=== PATIENT | male | born 2000 | race Caucasian/White ===

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

== ENCOUNTER 2018-01-10 21:46 | Inpatient (IN) | payer OTHER ==
[2018-01-10] MEDS ORDERED: LORazepam TAB(*) 1 MG PO ONE (21:56)
--- NOTE | 2018-01-10 22:12 | ED ---
Substance Abuse/Use - HPI Summary HPI Summary: This patient is a 17 year old M brought in by the police with a chief complaint of drug abuse since 5 days ago. The patient states that he would like to calm down and feels anxious. The police state that he has taken an unknown amount of drugs and has exhibited many manic behaviors. He has committed possible crimes within the last week. He witnessed his friend attempt suicide on Monday, and later that day he was given a DUI for heavy alcohol abuse. The police say that they entered the apartment with a warrant and it smelled heavily of marijuana. They took his bong on site. The police could not get his vitals because of the restraints they had to place on him. One of his friends had concentrated oils on their person. The patient states, the police told me they wouldnt take me to the hospital and here I am. Pt claims he has not had alcohol since five days ago and has only smoked marijuana since in order to treat his subjective anxiety and depression. PMHX undiagnosed anxiety and depression. SHX tobacco use , [employer] student. RX none. - History Of Current Complaint Stated Complaint: 941 Hx Obtained From: Patient, Other: - police Ingestion History: Type/Name Of Drug - marijuana Aggravating Factor(s): Recent Stress - suicide attempt of friend Related Hx: Recent Stressors - Allergies/Home Medications Allergies/Adverse Reactions: Allergies Allergy/AdvReac Type Severity Reaction Status Date / Time apple Allergy Difficulty Verified 01/05/18 06:14 Swallowing celery Allergy Difficulty Verified 01/05/18 06:14 Swallowing strawberry Allergy Anaphylatic Verified 01/11/18 11:46 Shock eggplant Allergy Anaphylatic Uncoded 01/11/18 11:46 Shock nonorganic foods Allergy Anaphylatic Uncoded 01/11/18 11:46 Shock PMH/Surg Hx/FS Hx/Imm Hx Endocrine/Hematology History: Denies: Hx Diabetes Cardiovascular History: Denies: Hx Hypercholesterolemia, Hx Hypertension Sensory History: Denies: Hx Deafness Psychiatric History: Denies: Hx Eating Disorder - Cancer History Cancer Type, Location and Year: None reported - Surgical History Surgery Procedure, Year, and Place: None reported - Immunization History Date of Tetanus Vaccine: Up-to-date - Family History Known Family History: Positive: Unknown - not given - Social History Occupation: Student Alcohol Use: Weekly Hx Substance Use: No Substance Use Type: Reports: Marijuana Hx Tobacco Use: No Smoking Status (MU): Never Smoked Tobacco Review of Systems Negative: Slurred Speech Positive: Anxious All Other Systems Reviewed And Are Negative: Yes Physical Exam - Summary Physical Exam Summary: Appearance: Well-appearing, Well-nourished, lying in bed comfortably Skin: Warm, dry, no obvious rash Eyes: sclera anicteric, no conjunctival pallor ENT: mucous membranes moist, pharynx appears normal Neck: Supple, nontender Respiratory: Clear to auscultation, no signs of respiratory distress Cardiovascular: Normal S1, S2. No murmurs. Normal distal pulses in tibial and radial bilaterally. Abdomen: Soft, nontender, normal active bowel sounds present Musculoskeletal: Normal, Strength/ROM Intact Neurological: A&Ox3, awake and alert, mentation is normal, speech is fluent and appropriate Psychiatric: affect is normal, does not appear anxious or depressed Triage Information Reviewed: Yes Vital Signs Reviewed: Yes Course/Dx - Course Course Of Treatment: This patient is a 17 year old M brought in by the police with a chief complaint of drug abuse since 5 days ago. The police state that he has taken an unknown amount of drugs and has exhibited many manic behaviors. He has committed possible crimes within the last week. He witnessed his friend attempt suicide on Monday, and later that day he was given a DUI for heavy alcohol abuse. The police say that they entered the apartment with a warrant and it smelled heavily of marijuana. They took his bong on site. The police could not get his vitals because of the restraints they had to place on him. One of his friends had concentrated oils on their person. In the ED course the patient was given Lorazapam and Nicotine. The patient will be signed out to Dr. Laguna, awaiting MHE - Diagnoses Provider Diagnoses: Substance induced mood disorder Discharge - Sign-Out/Discharge Documenting (check all that apply): Sign-Out Patient Signing out patient TO: Kasey Laguna Receiving patient FROM: Santos Wilde - Discharge Plan Condition: Fair Disposition: ADMITTED TO [facility] - Billing Disposition and Condition Condition: FAIR Disposition: Admitted to [facility] - Attestation Statements Document Initiated by Scribe: Yes Documenting Scribe: Teo Ortega Provider For Whom Scribe is Documenting (Include Credential): Santos Wilde MD Scribe Attestation: Teo Tran, scribed for Santos Wilde MD on 01/17/18 at 1000. Scribe Documentation Reviewed: Yes Provider Attestation: The documentation as recorded by the scribe, Teo Ortega accurately reflects the service I personally performed and the decisions made by me, Santos Wilde MD Status of Scribe Document: Viewed
[2018-01-10] MEDS: Nicotine Inhaler* 10 MG AMP INH PRN (22:50)
[2018-01-10] MEDS ORDERED: Mouth Piece, Nicotine* 1 EACH CARTRIDGE INH ONE (23:00)
[2018-01-11] MEDS: Nicotine Inhaler* 10 MG AMP INH PRN ×3 (00:41→12:25)
[2018-01-11] MEDS ORDERED: LORazepam TAB(*) 1 MG PO ONE ×2 (02:20→11:33)
--- NOTE | 2018-01-11 07:29 | ED ---
Progress - Progress Note Progress Note: This patient was received from Dr. Wilde on shift change awaiting MHE. The patient was evaluated by Dr. Tim and will be an involuntary admission for substance induced mood disorder. Course/Dx - Course Course Of Treatment: This patient was received from Dr. Wilde on shift change awaiting MHE. The patient was evaluated by Dr. Tim and will be an involuntary admission for substance induced mood disorder. - Diagnoses Provider Diagnoses: Substance induced mood disorder Discharge - Sign-Out/Discharge Documenting (check all that apply): Patient Departure - admitted , Receiving Sign-Out Receiving patient FROM: Santos Wilde - Discharge Plan Condition: Fair Disposition: ADMITTED TO [facility] - Billing Disposition and Condition Condition: FAIR Disposition: Admitted to [facility] - Attestation Statements Document Initiated by Dion: Yes Documenting Scribe: James Busch Provider For Whom Dion is Documenting (Include Credential): Kasey Laguna MD Scribe Attestation: James Tran scribed for Kasey Laguna MD on 01/11/18 at 1736. Scribe Documentation Reviewed: Yes Provider Attestation: The documentation as recorded by the James garza accurately reflects the service I personally performed and the decisions made by Kasey banegas MD Status of Scribe Document: Viewed
[2018-01-11] MEDS ORDERED: Acetaminophen TAB* 325 MG PO PRN (09:07)
[2018-01-11] MEDS ORDERED: Al Hydrox/Mg Hydrox/Simet LIQ* 30 ML UDC PO PRN (09:07)
[2018-01-11] MEDS ORDERED: Mouth Piece, Nicotine* 1 EACH CARTRIDGE ONE (12:23)
[2018-01-11] MEDS ORDERED: Nicotine PATCH 21 MG/24 HR* PATCH ONE (12:36)
[2018-01-11] MEDS: Nicotine PATCH 14 MG/24 HR* PATCH TRANSDERM SCH (16:21)
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
[2018-01-11] MEDS: Nicotine Patch Removal NOTE FOLLOW UP SCH (23:52)
[2018-01-12] MEDS ORDERED: Nicotine Inhaler* 10 MG AMP ONE (07:33)
[2018-01-12] MEDS: Nicotine GUM* 2 MG PO PRN (07:40)
[2018-01-12] MEDS: Nicotine PATCH 14 MG/24 HR* PATCH TRANSDERM SCH (07:40)
[2018-01-12] MEDS: LORazepam TAB(*) 1 MG PO SCH ×2 (10:24→23:57)
[2018-01-12] MEDS ORDERED: Mouth Piece, Nicotine* 1 EACH CARTRIDGE ONE (12:32)
[2018-01-12] MEDS: Nicotine Inhaler* 10 MG AMP INH PRN (12:33)
[2018-01-12] MEDS ORDERED: diPHENhydraMINE PO* 50 MG ONE (13:31)
[2018-01-12] MEDS ORDERED: Haloperidol TAB* 5 MG ONE (13:32)
[2018-01-12] MEDS ORDERED: LORazepam INJ* 2 MG/ML 1 ML VIAL ONE (13:38)
[2018-01-12] MEDS ORDERED: Haloperidol INJ IV/IM* 5 MG/ML AMP ONE (13:38)
[2018-01-12] MEDS ORDERED: diPHENhydraMINE PO* 50 MG PO ONE (14:15)
[2018-01-12] MEDS ORDERED: Haloperidol INJ IV/IM* 5 MG/ML AMP IM ONE (14:15)
[2018-01-12] MEDS ORDERED: Haloperidol TAB* 5 MG PO ONE (14:16)
[2018-01-12] MEDS ORDERED: LORazepam INJ* 2 MG/ML 1 ML VIAL IM ONE (14:16)
[2018-01-12] MEDS ORDERED: LORazepam TAB(*) 1 MG PO ONE (14:16)
--- NOTE | 2018-01-12 14:31 | PN ---
Subjective - Subjective Service Type: [id number] Hosp care 35 min high complexity Subjective: This morning, patient was present for unit routines and groups. He was noted to ask many questions of staff and expressed desire to learn while here. During visiting hours, patient was meeting with his mother, adjusto writer operator asked to join. Patient was initially topical regarding need for therapy in regards to recent traumatic experience of seeing his friend attempt suicide. He reports periods of depression and anxiety lasting a few minutes at a time, that are typically alleviated by marijuana. Merchandise Adjustment Clerk encouraged patient to be forthcoming about substance use history. He denies using cannabis or alprazolam since last week and continues to minimize substance use, despite factual information obtained from lab tests and collateral information. Patient was then circumstantial about cannabis. His mother attempted to speak but was often interrupted by him in a derogatory manner. She expressed that she is concerned to bring him home. Patient abruptly ran at full speed across unit and slammed his body into the metal doors. Patient was paranoid and disorganized. He postured, yelled and threatened staff. He was demanding to be discharged. With de-escalation from multiple staff and security, patient accepted stat oral medications for psychotic agitation. Objective - Appearance Appearance: Well Developed/Nourished Dysmorphic Features: Yes Hygiene: Normal Grooming: Fairly Well Kept - Behavior Psychomotor Activities: Normal Exhibits Abnormal Movement: No - Attitude and Relatedness Attitude and Relatedness: Psychotically Related Eye Contact: Poor - Speech Quality: Unpressured Latencies: Normal Quantity: Copious - Affect Observed Affect: Expansive Affect Consistent with: Euphoria - Thought Process Patient's Thought Process: Disorganized Thought Content: Yes Paranoid Ideation, No Passive Wish, No Suicidal Planning, No Homicidal Ideation - Sensorium Experiencing Hallucinations: No, Sensorium is Clear Type of Hallucinations: Visual: No, Auditory: No, Command: No - Level of Consciousness Level of Consciousness: Alert Orientation: Yes Intact, Yes Orientated to Time, Yes Orientated to Place, Yes Orientated to Person - Impulse Control Impulse Control: Impaired - Insight and Judgement Insight and Judgement: Impaired - Group Participation Particating in Group Activities: Yes - Medication Management Medication Management Adherence: Yes Assessment - Assessment Merits Inpatient Hospitalization: For Immediate Safety, For Stabilization Inpatient DSM-V Dx: F23 Clinical Impression: 17yo male who presented to ED with disorganized behavior and suicidal ideation. He is minimizing substance use and legal repercussions. Patient continues to present with episodic psychosis. He merits hospitalization for immediate safety and stabilization. MHU: Problem List - Patient Problems (1) Psychosis Current Visit: Yes Status: Acute Priority: High Comment: prn medications substance withdrawal monitoring Plan - Plan Treatment Plan: Name: JULIENNE RIZO Birthdate: 2000 [id number] continue acute intensive psychiatric treatment. monitor for benzodiazepine and alcohol withdrawal via [facility] protocol. utilize prn olanzapine and diphenhydramine for agitation. Continued Medication Management: Start Medication Medications: Current Medications Acetaminophen (Tylenol Tab*) 650 mg PO Q4H PRN PRN Reason: for pain; or Temp >101 F Al Hydrox/Mg Hydrox/Simethicone (Maalox Plus*) 30 ml PO Q4H PRN PRN Reason: INDIGESTION Hydroxyzine HCl (Atarax Tab*) 50 mg PO Q6H PRN PRN Reason: ANXIETY Lorazepam (Ativan Tab(*)) 0 - 6 mg PO .PER [facility] PROTOCOL [facility]; Protocol Last Admin: 01/12/18 10:24 Dose: 2 mg Nicotine (Nicotine Patch 14 Mg/24 Hr*) 1 patch TRANSDERM DAILY [facility] Last Admin: 01/12/18 07:40 Dose: 1 patch Nicotine (Nicotine Inhaler*) 10 mg INH Q2H PRN PRN Reason: CRAVING Last Admin: 01/12/18 12:33 Dose: 10 mg Nicotine Polacrilex (Nicotine Gum*) 2 mg PO Q2H PRN PRN Reason: CRAVING Last Admin: 01/12/18 07:40 Dose: 2 mg Pharmacy Profile Note (Nicotine Patch Removal Note*) 1 note FOLLOW UP 2100 [facility] Last Admin: 01/11/18 23:52 Dose: 1 note diphenhydramine 50mg po q4h prn agitation olanzapine ODT 5mg q4h prn agitation - Discharge Plan Discharge Plan: Inpatient Hospitalization
[2018-01-12] MEDS: Nicotine Patch Removal NOTE FOLLOW UP SCH (21:17)
[2018-01-12] MEDS: hydrOXYzine HCL TAB* 50 MG PO PRN (23:57)
[2018-01-13] MEDS: Nicotine PATCH 14 MG/24 HR* PATCH TRANSDERM SCH (09:16)
[2018-01-13] MEDS: Nicotine Inhaler* 10 MG AMP INH PRN ×4 (09:17→19:56)
[2018-01-13] MEDS: Nicotine GUM* 2 MG PO PRN ×4 (09:19→19:56)
[2018-01-13] MEDS: hydrOXYzine HCL TAB* 50 MG PO PRN (09:21)
[2018-01-13] MEDS: LORazepam TAB(*) 1 MG PO SCH (11:49)
[2018-01-13] MEDS: Nicotine Patch Removal NOTE FOLLOW UP SCH (19:57)
[2018-01-14] MEDS: Nicotine GUM* 2 MG PO PRN ×3 (07:42→16:05)
[2018-01-14] MEDS: Nicotine Inhaler* 10 MG AMP INH PRN ×4 (07:42→20:10)
[2018-01-14] MEDS: Nicotine PATCH 14 MG/24 HR* PATCH TRANSDERM SCH (07:42)
[2018-01-14] MEDS: hydrOXYzine HCL TAB* 50 MG PO PRN (19:32)
--- NOTE | 2018-01-14 20:11 | PN ---
Subjective - Subjective Date of Service: 01/14/18 Service Type: [id number] Hosp care 15 min low complexity Subjective: Willie continues to be angry at his mother for reporting wrong information. His thoughts are still disorganized with very poor understanding of his psychiatric problems as well as substance use. He thinks there is nothing wrong abusing drugs in moderation. Objective - Appearance Appearance: Healthy Appearing Dysmorphic Features: No Hygiene: Normal Grooming: Fairly Well Kept - Behavior Psychomotor Activities: Abnormal-Increased Exhibits Abnormal Movement: No - Attitude and Relatedness Attitude and Relatedness: Guarded Eye Contact: Fair - Speech Quality: Pressured Latencies: Short Quantity: Terse - Mood Patient's Decription of Mood: "Angry" - Affect Observed Affect: Tense Affect Consistent with: Dysphoria - Thought Process Patient's Thought Process: Coherent, Disorganized, Tangential Thought Content: No Passive Wish, No Suicidal Planning, No Homicidal Ideation, No Paranoid Ideation - Sensorium Experiencing Hallucinations: No, Sensorium is Clear Type of Hallucinations: Visual: No, Auditory: No, Command: No - Level of Consciousness Level of Consciousness: Alert Orientation: Yes Intact, Yes Orientated to Time, Yes Orientated to Place, Yes Orientated to Person - Impulse Control Impulse Control: Impaired - Insight and Judgement Insight and Judgement: Impaired - Group Participation Particating in Group Activities: No - Medication Management Medication Management Adherence: No Assessment - Assessment Merits Inpatient Hospitalization: For Immediate Safety, For Stabilization, Pending Safe DC Plan Inpatient DSM-V Dx: F23 Clinical Impression: 17yo male who presented to ED with disorganized behavior and suicidal ideation. He is minimizing substance use and legal repercussions. Patient continues to present with episodic psychosis. He merits hospitalization for immediate safety and stabilization. Plan - Plan Treatment Plan: Name: WILLIE RIZO Birthdate: 2000 [id number] continue acute intensive psychiatric treatment. monitor for benzodiazepine and alcohol withdrawal via [facility] protocol. utilize prn olanzapine and diphenhydramine for agitation. Continued Medication Management: Continue Outpt Medication Medications: Current Medications Acetaminophen (Tylenol Tab*) 650 mg PO Q4H PRN PRN Reason: for pain; or Temp >101 F Al Hydrox/Mg Hydrox/Simethicone (Maalox Plus*) 30 ml PO Q4H PRN PRN Reason: INDIGESTION Hydroxyzine HCl (Atarax Tab*) 50 mg PO Q6H PRN PRN Reason: ANXIETY Last Admin: 01/14/18 19:32 Dose: 50 mg Lorazepam (Ativan Tab(*)) 0 - 6 mg PO .PER [facility] PROTOCOL [facility]; Protocol Last Admin: 01/13/18 11:49 Dose: 3 mg Nicotine (Nicotine Patch 14 Mg/24 Hr*) 1 patch TRANSDERM DAILY [facility] Last Admin: 01/14/18 07:42 Dose: 1 patch Nicotine (Nicotine Inhaler*) 10 mg INH Q2H PRN PRN Reason: CRAVING Last Admin: 01/14/18 16:05 Dose: 10 mg Nicotine Polacrilex (Nicotine Gum*) 2 mg PO Q2H PRN PRN Reason: CRAVING Last Admin: 01/14/18 16:05 Dose: 2 mg Pharmacy Profile Note (Nicotine Patch Removal Note*) 1 note FOLLOW UP 2100 [facility] Last Admin: 01/13/18 19:57 Dose: Not Given - Discharge Plan Discharge Plan: Drug/Alcohol Rehab
[2018-01-14] MEDS: Nicotine Patch Removal NOTE FOLLOW UP SCH (20:50)
[2018-01-15] MEDS ORDERED: Mouth Piece, Nicotine* 1 EACH CARTRIDGE ONE (08:06)
[2018-01-15] MEDS: Nicotine PATCH 14 MG/24 HR* PATCH TRANSDERM SCH (08:26)
[2018-01-15] MEDS: Nicotine Inhaler* 10 MG AMP INH PRN ×4 (08:27→17:38)
[2018-01-15] MEDS: Nicotine GUM* 2 MG PO PRN ×4 (08:28→17:40)
--- NOTE | 2018-01-15 15:53 | PN ---
Subjective - Subjective Date of Service: 01/15/18 Service Type: [id number] Hosp care 15 min low complexity Subjective: Patient reports being here over the weekend was "hard to adjust." He states he would benefit from fresh air. He states he is trying to call his zinc chloride operator and IC officials. He reports his mood is "overall pretty good." He denies depressed mood or anxiety. He states he does not want to be prescribed medications. He reports "Ok" sleep. Patient inquires about length of stay, citing he has plane tickets to [place] to see his grandfather on his bed. Patient continues to minimize substance use and denies need for treatment for such. Assessment - Assessment Merits Inpatient Hospitalization: For Immediate Safety, For Stabilization, For Ongoing Evaluation Inpatient DSM-V Dx: F23 Clinical Impression: 17yo male who presented to ED with disorganized behavior and suicidal ideation. He is minimizing substance use and legal repercussions. He merits hospitalization for immediate safety and stabilization. MHU: Problem List - Patient Problems (1) Psychosis Current Visit: Yes Status: Acute Priority: High Comment: prn medications substance withdrawal monitoring Plan - Plan Treatment Plan: Name: JULIENNE RIZO Birthdate: 2000 [id number] continue acute intensive psychiatric treatment. utilize prn olanzapine and diphenhydramine for agitation. Continued Medication Management: Consider Medication Medications: Current Medications Acetaminophen (Tylenol Tab*) 650 mg PO Q4H PRN PRN Reason: for pain; or Temp >101 F Al Hydrox/Mg Hydrox/Simethicone (Maalox Plus*) 30 ml PO Q4H PRN PRN Reason: INDIGESTION Hydroxyzine HCl (Atarax Tab*) 50 mg PO Q6H PRN PRN Reason: ANXIETY Last Admin: 01/14/18 19:32 Dose: 50 mg Lorazepam (Ativan Tab(*)) 0 - 6 mg PO .PER [facility] PROTOCOL [facility]; Protocol Last Admin: 01/13/18 11:49 Dose: 3 mg Nicotine (Nicotine Patch 14 Mg/24 Hr*) 1 patch TRANSDERM DAILY [facility] Last Admin: 01/15/18 08:26 Dose: 1 patch Nicotine (Nicotine Inhaler*) 10 mg INH Q2H PRN PRN Reason: CRAVING Last Admin: 01/15/18 14:01 Dose: 10 mg Nicotine Polacrilex (Nicotine Gum*) 2 mg PO Q2H PRN PRN Reason: CRAVING Last Admin: 01/15/18 14:01 Dose: 2 mg Pharmacy Profile Note (Nicotine Patch Removal Note*) 1 note FOLLOW UP 2100 [facility] Last Admin: 01/14/18 20:50 Dose: 1 note - Discharge Plan Discharge Plan: Inpatient Hospitalization
[2018-01-15] MEDS: Nicotine Patch Removal NOTE FOLLOW UP SCH (23:00)
[2018-01-15] MEDS: hydrOXYzine HCL TAB* 50 MG PO PRN (23:02)
[2018-01-16] MEDS: Nicotine Inhaler* 10 MG AMP INH PRN ×4 (07:46→19:04)
[2018-01-16] MEDS: Nicotine GUM* 2 MG PO PRN ×4 (07:46→19:04)
[2018-01-16] MEDS: Nicotine PATCH 14 MG/24 HR* PATCH TRANSDERM SCH (07:47)
--- NOTE | 2018-01-16 14:19 | PN ---
Subjective - Subjective Date of Service: 01/16/18 Service Type: 39751 Hosp care 25 min moderate complexity Subjective: Plumbing Instructor spoke with patient's mother, Carole. She states she is having difficulty coping with learning that Son has not been truthful to her. She states he was "a really good kid and always very happy." She states she is concerned about Son and his father interacting and inquires about doing so in a controlled environment. She asks to be called at home: [phone] or on her cell: . Patient has been participating fully in groups and observed to take notes. He states he is hoping to gain more control of emotions. As recommended, patient wrote in journal about his involvement in events leading to admission. His answers indicated he views himself as a victim of circumstances. He consents to participate in family meeting with both parents. Plumbing Instructor returned call to Mrs Rizo and clarified family meeting for 1pm tomorrow. Objective - Appearance Appearance: Well Developed/Nourished Dysmorphic Features: Yes Hygiene: Normal Grooming: Fairly Well Kept - Behavior Psychomotor Activities: Normal Exhibits Abnormal Movement: No - Attitude and Relatedness Attitude and Relatedness: Cooperative Eye Contact: Fair - Speech Quality: Unpressured Latencies: Normal Quantity: Appropriate - Mood Patient's Decription of Mood: "Okay" - Affect Observed Affect: Tearful Affect Consistent with: Dysphoria - Thought Process Patient's Thought Process: Circumstantial Thought Content: No Passive Wish, No Suicidal Planning, No Homicidal Ideation, No Paranoid Ideation - Sensorium Experiencing Hallucinations: No, Sensorium is Clear Type of Hallucinations: Visual: No, Auditory: No, Command: No - Level of Consciousness Level of Consciousness: Alert Orientation: Yes Intact, Yes Orientated to Time, Yes Orientated to Place, Yes Orientated to Person - Impulse Control Impulse Control: Tenuous - Insight and Judgement Insight and Judgement: Poor - Group Participation Particating in Group Activities: Yes - Medication Management Medication Management Adherence: Yes Assessment - Assessment Merits Inpatient Hospitalization: For Immediate Safety, For Stabilization, For Ongoing Evaluation, For Discharge Planning Inpatient DSM-V Dx: F23 Clinical Impression: 17yo male who presented to ED with disorganized behavior and suicidal ideation. He is minimizing substance use and legal repercussions. He merits hospitalization for immediate safety and stabilization. MHU: Problem List - Patient Problems (1) Psychosis Current Visit: Yes Status: Acute Priority: High Comment: prn medications substance withdrawal monitoring Plan - Plan Treatment Plan: Name: JULIENNE RIZO Birthdate: 2000 [id number] continue acute intensive psychiatric treatment. may decrease to q30min obs. utilize prn olanzapine and diphenhydramine for agitation. discharge planning to include family and outpatient providers, recommendation of substance use treatment Continued Medication Management: Consider Medication Medications: Current Medications Acetaminophen (Tylenol Tab*) 650 mg PO Q4H PRN PRN Reason: for pain; or Temp >101 F Al Hydrox/Mg Hydrox/Simethicone (Maalox Plus*) 30 ml PO Q4H PRN PRN Reason: INDIGESTION Hydroxyzine HCl (Atarax Tab*) 50 mg PO Q6H PRN PRN Reason: ANXIETY Last Admin: 01/15/18 23:02 Dose: 50 mg Nicotine (Nicotine Patch 14 Mg/24 Hr*) 1 patch TRANSDERM DAILY [facility] Last Admin: 01/16/18 07:47 Dose: 1 patch Nicotine (Nicotine Inhaler*) 10 mg INH Q2H PRN PRN Reason: CRAVING Last Admin: 01/16/18 11:58 Dose: 10 mg Nicotine Polacrilex (Nicotine Gum*) 2 mg PO Q2H PRN PRN Reason: CRAVING Last Admin: 01/16/18 11:58 Dose: 2 mg Pharmacy Profile Note (Nicotine Patch Removal Note*) 1 note FOLLOW UP 2100 [facility] Last Admin: 01/15/18 23:00 Dose: 1 note - Discharge Plan Discharge Plan: Inpatient Hospitalization
[2018-01-16] MEDS: Nicotine Patch Removal NOTE FOLLOW UP SCH (22:44)
[2018-01-17] MEDS: Nicotine Inhaler* 10 MG AMP INH PRN ×2 (10:25→22:03)
[2018-01-17] MEDS: hydrOXYzine HCL TAB* 50 MG PO PRN (11:46)
[2018-01-17] MEDS: Nicotine PATCH 14 MG/24 HR* PATCH TRANSDERM SCH (11:46)
--- NOTE | 2018-01-17 15:50 | PN ---
Subjective - Subjective Date of Service: 01/17/18 Service Type: 29195 Hosp care 35 min high complexity Subjective: patient observed to be labile, intermittently tearful or severely agitated in a seething manner. patient is oddly related, at times. he participated in family meeting with both parents (see SW note). patient continues to lack insight into events leading to admission or judicial involvement. Assessment - Assessment Merits Inpatient Hospitalization: For Immediate Safety, For Stabilization, Diagnosis Determination, For Ongoing Evaluation Inpatient DSM-V Dx: F23 Clinical Impression: 17yo male who presented to ED with disorganized behavior and suicidal ideation. He is minimizing substance use and legal repercussions. Patient is labile and oddly-related at times. He merits hospitalization for immediate safety and stabilization. MHU: Problem List - Patient Problems (1) Psychosis Current Visit: Yes Status: Acute Priority: High Comment: start quetiapine Plan - Plan Treatment Plan: Name: JULIENNE RIZO Birthdate: 2000 [id number] continue acute intensive psychiatric treatment. may decrease to q30min obs. obtain MMPI for diagnostic clarification, patient to complete NNEKA packet when able. trial quetiapine at bedtime. discharge planning to include family and outpatient providers, recommendation of substance use treatment Continued Medication Management: Start Medication Medications: Current Medications Acetaminophen (Tylenol Tab*) 650 mg PO Q4H PRN PRN Reason: for pain; or Temp >101 F Al Hydrox/Mg Hydrox/Simethicone (Maalox Plus*) 30 ml PO Q4H PRN PRN Reason: INDIGESTION Hydroxyzine HCl (Atarax Tab*) 50 mg PO Q6H PRN PRN Reason: ANXIETY Last Admin: 01/17/18 11:46 Dose: 50 mg Nicotine (Nicotine Patch 14 Mg/24 Hr*) 1 patch TRANSDERM DAILY [facility] Last Admin: 01/17/18 11:46 Dose: Not Given Nicotine (Nicotine Inhaler*) 10 mg INH Q2H PRN PRN Reason: CRAVING Last Admin: 01/17/18 10:25 Dose: 10 mg Nicotine Polacrilex (Nicotine Gum*) 2 mg PO Q2H PRN PRN Reason: CRAVING Last Admin: 01/16/18 19:04 Dose: 2 mg Pharmacy Profile Note (Nicotine Patch Removal Note*) 1 note FOLLOW UP 2100 [facility] Last Admin: 01/16/18 22:44 Dose: 1 note Quetiapine Fumarate (Seroquel Tab*) 50 mg PO BEDTIME [facility] - Discharge Plan Discharge Plan: Inpatient Hospitalization
[2018-01-17] MEDS: Nicotine Patch Removal NOTE FOLLOW UP SCH (21:58)
[2018-01-17] MEDS: QUEtiapine TAB* 25 MG PO SCH (21:59)
[2018-01-18] MEDS: Nicotine PATCH 14 MG/24 HR* PATCH TRANSDERM SCH (09:58)
[2018-01-18] MEDS ORDERED: Mouth Piece, Nicotine* 1 EACH CARTRIDGE ONE (10:44)
[2018-01-18] MEDS: Nicotine Inhaler* 10 MG AMP INH PRN ×2 (10:45→17:18)
[2018-01-18] MEDS: QUEtiapine TAB* 25 MG PO SCH (20:18)
[2018-01-18] MEDS: Nicotine Patch Removal NOTE FOLLOW UP SCH (23:01)
[2018-01-19] MEDS: Nicotine PATCH 14 MG/24 HR* PATCH TRANSDERM SCH (09:16)
[2018-01-19] MEDS ORDERED: Acetaminophen TAB* 325 MG ONE (12:04)
[2018-01-19] MEDS: Nicotine Inhaler* 10 MG AMP INH PRN (14:08)
--- NOTE | 2018-01-19 16:02 | PN ---
Subjective - Subjective Date of Service: 01/19/18 Service Type: 73626 Hosp care 25 min moderate complexity Subjective: Patient reviewed writings in journal since meeting with his parents. He states that he and his father had "a good one on one" and reports feeling closer to his father. He states he is willing to have an evaluation for substance use treatment. He becomes tearful and goes on to discuss that his girlfriend is being harassed by a male on campus and that she reported this. Home Organizer validated concern and encouraged him to not distract from his treatment. Home Organizer spoke with patient's mother, Carole. She states that [place] a nearby town that has a large hospital system. Home Organizer identified this has MH and CD outpatient therapy services. Carole states that she intends to coordinate with re: judiciary hearing for Max. We discuss tentative discharge for monday and she is agreeable. Objective - Appearance Appearance: Well Developed/Nourished Dysmorphic Features: Yes Hygiene: Normal Grooming: Well Kept - Behavior Psychomotor Activities: Normal Exhibits Abnormal Movement: No - Attitude and Relatedness Attitude and Relatedness: Cooperative Eye Contact: Fair - Speech Quality: Unpressured Latencies: Normal Quantity: Appropriate - Mood Patient's Decription of Mood: "Angry" - Affect Observed Affect: Expansive Affect Consistent with: Dysphoria - Thought Process Patient's Thought Process: Coherent, Goal Directed Thought Content: No Passive Wish, No Suicidal Planning, No Homicidal Ideation, No Paranoid Ideation - Sensorium Experiencing Hallucinations: No, Sensorium is Clear Type of Hallucinations: Visual: No, Auditory: No, Command: No - Level of Consciousness Level of Consciousness: Alert Orientation: Yes Intact, Yes Orientated to Time, Yes Orientated to Place, Yes Orientated to Person - Impulse Control Impulse Control: Tenuous - Insight and Judgement Insight and Judgement: Poor - Group Participation Particating in Group Activities: Yes - Medication Management Medication Management Adherence: Yes Assessment - Assessment Merits Inpatient Hospitalization: For Immediate Safety, For Stabilization, For Discharge Planning, Pending Safe DC Plan Inpatient DSM-V Dx: F23 Clinical Impression: 17yo male who presented to ED with disorganized behavior and suicidal ideation. He is minimizing substance use and legal repercussions. Patient is labile and oddly-related at times. He merits hospitalization for immediate safety and stabilization. MHU: Problem List - Patient Problems (1) Psychosis Current Visit: Yes Status: Acute Priority: High Comment: start quetiapine Plan - Plan Treatment Plan: Name: JULIENNE RIZO Birthdate: 2000 [id number] continue acute intensive psychiatric treatment. may decrease to q30min obs. may allow computer use per RN discretion. continue quetiapine at bedtime. discharge planning to include family and outpatient providers, recommendation of substance use treatment Continued Medication Management: Start Medication Medications: Current Medications Acetaminophen (Tylenol Tab*) 650 mg PO Q4H PRN PRN Reason: for pain; or Temp >101 F Last Admin: 01/19/18 12:04 Dose: 650 mg Al Hydrox/Mg Hydrox/Simethicone (Maalox Plus*) 30 ml PO Q4H PRN PRN Reason: INDIGESTION Hydroxyzine HCl (Atarax Tab*) 50 mg PO Q6H PRN PRN Reason: ANXIETY Last Admin: 01/17/18 11:46 Dose: 50 mg Nicotine (Nicotine Patch 14 Mg/24 Hr*) 1 patch TRANSDERM DAILY [facility] Last Admin: 01/19/18 09:16 Dose: Not Given Nicotine (Nicotine Inhaler*) 10 mg INH Q2H PRN PRN Reason: CRAVING Last Admin: 01/19/18 14:08 Dose: 10 mg Nicotine Polacrilex (Nicotine Gum*) 2 mg PO Q2H PRN PRN Reason: CRAVING Last Admin: 01/16/18 19:04 Dose: 2 mg Pharmacy Profile Note (Nicotine Patch Removal Note*) 1 note FOLLOW UP 2100 [facility] Last Admin: 01/18/18 23:01 Dose: Not Given Quetiapine Fumarate (Seroquel Tab*) 50 mg PO BEDTIME [facility] Last Admin: 01/18/18 20:18 Dose: 50 mg - Discharge Plan Discharge Plan: Inpatient Hospitalization
[2018-01-19] MEDS: QUEtiapine TAB* 25 MG PO SCH (20:55)
[2018-01-19] MEDS: Nicotine Patch Removal NOTE FOLLOW UP SCH (22:33)
[2018-01-20] MEDS: Nicotine PATCH 14 MG/24 HR* PATCH TRANSDERM SCH (09:13)
[2018-01-20] MEDS: Nicotine Inhaler* 10 MG AMP INH PRN ×2 (09:56→20:36)
[2018-01-20] MEDS: hydrOXYzine HCL TAB* 50 MG PO PRN (11:35)
[2018-01-20] MEDS: QUEtiapine TAB* 25 MG PO SCH (20:37)
[2018-01-20] MEDS: Nicotine Patch Removal NOTE FOLLOW UP SCH (20:38)
[2018-01-21] MEDS: Nicotine PATCH 14 MG/24 HR* PATCH TRANSDERM SCH (08:33)
[2018-01-21] MEDS: Nicotine Inhaler* 10 MG AMP INH PRN ×3 (09:52→21:23)
[2018-01-21] MEDS: QUEtiapine TAB* 25 MG PO SCH (21:23)
[2018-01-21] MEDS: Nicotine Patch Removal NOTE FOLLOW UP SCH (22:46)
[2018-01-22] MEDS: Nicotine PATCH 14 MG/24 HR* PATCH TRANSDERM SCH (08:21)
[2018-01-22] MEDS: Nicotine Inhaler* 10 MG AMP INH PRN (08:21)
[2018-01-22 08:35] VITALS: BP 121/72
--- NOTE | 2018-01-22 11:46 | PN ---
MHU: Group Therapy Note - Service Type Service Type: 67513 Group Psychotherapy - Cognitive Behavioral Group Therapy ( CBT):Patient was attentive and participatory in CBT programming this morning, and remained in good behavioral control. Patient expressed positive insights regarding relevant treatment interventions and goals.
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
== END 2018-01-22 11:50 | disposition home or self-care (01) | DRG 885 ==
LOC: ED 21:46 → BSU 01-11 09:07 → ED 01-11 12:44 → BSU 01-16 13:41
PROVIDERS: ADMIT Psychiatry & Neurology Psychiatry; ATTEND Psychiatry & Neurology Psychiatry
DX: F23 Brief psychotic disorder (principal); R45.851 Suicidal ideations; F19.90 Other psychoactive substance use, unspecified, uncomplicated; F17.210 Nicotine dependence, cigarettes, uncomplicated; Z72.89 Other problems related to lifestyle; Z81.1 Family history of alcohol abuse and dependence
CPT/HCPCS: 36415; 70450; 80307; 80320; 90853; 99222; 99231; 99232; 99233; 99238; 99284; A9270-GY; G0480; J1630; J2060